=== PATIENT | female | born 1985 | race Caucasian/White ===

== ENCOUNTER 2018-12-31 14:38 | Emergency (ER) | payer OTHER ==
[~2018-12-31] VITALS: Ht 152.4 cm; Wt 45.4 kg
[~2018-12-31 14:38] MED LIST: BENADRYL25 MG PO; CARISOPRODOL 3350 MG PO; CIPROFLOXACIN500 M1 PO; COLACE100 MG PO; FERROUS SULFAT325 M1 PO; HYDROCODON-ACE1 EAC5 PO; IBUPROFEN 200200 M1 PO; NEURONTIN 300300 M1 PO; PERCOCET 10-321 EACH PO; ZPAK PO
[2018-12-31] MEDS ORDERED: OXYCONTIN15 MG PO (14:54)
[2018-12-31] MEDS ORDERED: OXYCODONE HCL E30 MG PO (14:54)
[2018-12-31] MEDS ORDERED: ZANAFLEX4 M1 PO (14:55)
[2018-12-31] MEDS ORDERED: OXYCONTIN30 MG PO (15:14)
[2018-12-31] MEDS ORDERED: ROXICODONE15 M1 PO (15:14)
[2018-12-31 15:49] VITALS: BP 121/72
== END 2018-12-31 15:50 | disposition home or self-care (01) ==
LOC: M.ERS 14:38
DX: M54.5 Low back pain (principal); R25.1 Tremor, unspecified; Z88.6 Allergy status to analgesic agent; Z88.5 Allergy status to narcotic agent; Z90.49 Acquired absence of other specified parts of digestive tract